=== PATIENT | female | born 1940 | race Caucasian/White ===

== ENCOUNTER 2019-02-21 20:40 | Emergency (ER) | payer OTHER, MEDICAID, MEDICARE ==
[2019-02-21] MEDS: SOD CHLORIDE 0.9% 500 ML IV (21:37)
[2019-02-21 21:40] LABS: WHITE BLOOD COUNT 5.2 10^3/ul (4.8-10.8)
[2019-02-21 21:40] LABS: ABNORMAL IP MESSAGE 1; HEMATOCRIT 28.4 % (37.0-47.0); HEMOGLOBIN 9.4 g/dl (12.0-16.0); MEAN CORPUSCULAR HEMOGLOBIN 28.7 pg (29.0-33.0); MEAN CORPUSCULAR HGB CONC 33.1 g/dl (32.0-37.0); MEAN CORPUSCULAR VOLUME 86.6 fl (82.0-101.0); MEAN PLATELET VOLUME 10.9 fl (7.4-10.4); NUCLEATED RED BLOOD CELLS% 1.2 /100WBC (0.0-0.0); RED BLOOD COUNT 3.28 10^6/ul (4.20-5.40); RED CELL DISTRIBUTION WIDTH 15.9 % (11.5-14.5)
[2019-02-21 21:55] LABS: POSITIVE DIFF @See below
[2019-02-21 21:57] LABS: ADD MAN DIFF? YES; PATH REVIEW? YES; PLATELET COUNT 30 10^3/UL (140-415)
[2019-02-21] MEDS: SOD CHLORIDE 0.9% 0 ML IV (21:57)
[2019-02-21 21:58] LABS: ALANINE AMINOTRANSFERASE 26 IU/L (13-69); ALBUMIN 3.1 g/dl (3.3-4.9); ALBUMIN/GLOBULIN RATIO 0.79; ALKALINE PHOSPHATASE 221 IU/L (42-121); ANION GAP 10 (5-13); ASPARTATE AMINO TRANSFERASE 56 IU/L (15-46); BILIRUBIN,INDIRECT 0.4 mg/dl (0-1.1); BILIRUBIN,TOTAL 0.4 mg/dl (0.2-1.3); BLOOD UREA NITROGEN 14 mg/dl (7-20); CALCIUM 8.7 mg/dl (8.4-10.2); CARBON DIOXIDE 25 mmol/L (21-31); CHLORIDE 95 mmol/L (97-110); CREATININE 0.36 mg/dl (0.44-1.00); GLUCOSE 142 mg/dl (70-220); POTASSIUM 4.2 mmol/L (3.5-5.1); SODIUM 130 mmol/L (135-144)
[2019-02-21 21:59] LABS: PROTIME 15.3 Sec (11.9-14.9); PT RATIO 1.2
[2019-02-21 22:00] LABS: PARTIAL THROMBOPLASTIN TIME 44.2 Sec (23.0-35.0)
[2019-02-21 22:09] LABS: TROPONIN-I < 0.012 ng/ml (0.000-0.120)
[2019-02-21 23:32] LABS: ANISOCYTOSIS 1+ (0-0); BAND NEUTROPHILS #M 0.8 10^3/ul (0.0-0.6); BAND NEUTROPHILS % (M) 17 % (0-4); LYMPHOCYTES #M 0.6 10^3/ul (0.8-2.9); LYMPHOCYTES % (M) 12 % (15-51); MONOCYTE #M 0.6 10^3/ul (0.3-0.9); MONOCYTES % (M) 12 % (0-11); MYELOCYTES #M 0.1 10^3/ul (0.0-0.0); MYELOCYTES % (M) 2 % (0-0); PLATELET ESTIMATE DECREASED; POLYCHROMASIA 1+ (0-0); SEGMENTED NEUTROPHILS (M) % 57 % (39-77); SMUDGE%M 36 % (0-0)
[2019-02-22 09:58] LABS: TYPE AND SCREEN 1 1
== END 2019-02-22 16:45 | disposition home or self-care (01) ==
LOC: E/R 20:40
DX: D69.6 Thrombocytopenia, unspecified (principal); R40.2142 Coma scale, eyes open, spontaneous, at arrival to emergency department; R40.2252 Coma scale, best verbal response, oriented, at arrival to emergency department; R40.2362 Coma scale, best motor response, obeys commands, at arrival to emergency department; R10.9 Unspecified abdominal pain; Z85.818 Personal history of malignant neoplasm of other sites of lip, oral cavity, and pharynx
CPT/HCPCS: 36415; 36430; 80053; 82962; 84484; 85025; 85610; 85730; 86850; 86900; 86901; 93005; 99285-25